=== PATIENT | female | born 1980 | race Caucasian/White ===

== ENCOUNTER 2018-01-11 20:50 | Emergency (ER) | payer BC ==
[2018-01-11 21:01] VITALS: BP 111/75
[2018-01-11 21:47] LABS: ABSOLUTE BASOPHILS # (AUTO) 0.1 10^3/uL (0.0-0.2); ABSOLUTE EOSINOPHILS # (AUTO) 0.4 10^3/uL (0.0-0.6); ABSOLUTE MONOCYTES (AUTO) 0.7 10^3/uL (0.1-1.4); ABSOLUTE NEUT (AUTO) 5.1 10^3/uL (1.7-8.2); BASOPHILS % (AUTO) 0.7 % (0-2); HEMOGLOBIN 14.4 g/dL (12.0-15.5); LYMPHOCYTES % (AUTO) 32.1 % (13-45); MEAN CORPUSCULAR HEMOGLOBIN 31.7 pg (27.0-33.4); MEAN CORPUSCULAR HGB CONC 34.2 g/dL (32.0-36.0); MEAN CORPUSCULAR VOLUME 93 fl (80-97); PLATELET COUNT 469 10^3/uL (150-450); RED BLOOD COUNT 4.54 10^6/uL (3.72-5.28); RED CELL DISTRIBUTION WIDTH 13.6 % (11.5-14.0); SEGMENTED NEUTROPHILS % (AUTO) 55.2 % (42-78); TOTAL CELLS COUNTED % (AUTO) 100 %; WHITE BLOOD COUNT 9.2 10^3/uL (4.0-10.5)
[2018-01-11 21:52] LABS: APPEARANCE,URINE SLIGHTLY-CLOUDY; BILIRUBIN,URINE NEGATIVE (NEGATIVE); COLOR,URINE YELLOW; GLUCOSE, URINE NEGATIVE (NEGATIVE); KETONES,URINE NEGATIVE (NEGATIVE); LEUKOCYTE ESTERASE,URINE LARGE (NEGATIVE); NITRITE,URINE NEGATIVE (NEGATIVE); PROTEIN,URINE NEGATIVE (NEGATIVE); URINE SPECIFIC GRAVITY 1.017; UROBILINOGEN,URINE NEGATIVE mg/dL (<2.0)
[2018-01-11 22:05] LABS: ALANINE AMINOTRANSFERASE 27 U/L (9-52); ALBUMIN 4.4 g/dL (3.5-5.0); ALKALINE PHOSPHATASE 89 U/L (38-126); ANION GAP 11 (5-19); ASPARTATE AMINO TRANSFERASE 27 U/L (14-36); BILIRUBIN,DIRECT 0.2 mg/dL (0.0-0.4); BILIRUBIN,TOTAL 0.4 mg/dL (0.2-1.3); BLOOD UREA NITROGEN 11 mg/dL (7-20); CALCIUM 9.6 mg/dL (8.4-10.2); CARBON DIOXIDE 29 mmol/L (22-30); CHLORIDE 104 mmol/L (98-107); GLUCOSE 61 mg/dL (75-110); POTASSIUM 4.4 mmol/L (3.6-5.0); SODIUM 143.7 mmol/L (137-145); TOTAL PROTEIN 7.9 g/dL (6.3-8.2)
== END 2018-01-11 23:00 | disposition left against medical advice (07) ==
LOC: ER 20:50
DX: Z53.21 Procedure and treatment not carried out due to patient leaving prior to being seen by health care provider (principal)
CPT/HCPCS: 36415; 80053; 81001; 84703; 85025

== ENCOUNTER 2018-02-22 20:04 | Emergency (ER) | payer BC ==
--- NOTE | 2018-02-22 20:44 | ER Document Report ---
HPI - HPI Pain Level: 4 Past Medical History Renal/ Medical History: Denies: Hx Peritoneal Dialysis Vertical Provider Document - INFECTION CONTROL TRAVEL OUTSIDE OF THE [place] IN LAST 30 DAYS: No Course - Vital Signs Vital signs: Temp Pulse Resp BP Pulse Ox 100.8 F H 105 H 18 120/77 100 02/22/18 20:16 02/22/18 20:16 02/22/18 20:16 02/22/18 20:16 02/22/18 20:16
[2018-02-22] MEDS ORDERED: ACETAMINOPHEN 325 MG TABLET PO ONE (21:06)
[2018-02-22] MEDS ORDERED: NORMAL SALINE 1000 ML 1,000 ML IV ONE (21:13)
--- NOTE | 2018-02-22 21:18 | ER Document Report ---
ED GI/ - General Mode of Arrival: Ambulatory Information source: Patient TRAVEL OUTSIDE OF THE [place] IN LAST 30 DAYS: No <AJAY SALAZAR - Last Filed: 02/23/18 03:16> <CORA LISA - Last Filed: 02/23/18 03:31> - General Chief Complaint: Urinary Problem Stated Complaint: PAINFUL URINATION Time Seen by Provider: 02/22/18 20:44 Notes: 37-year-old female nondiabetic complaining of dysuria frequency and urgency for several days. She has nausea chills and fever. It started with low back pain that was generalized. No vaginal discharge or odor. (AJAY SALAZAR) - Related Data Allergies/Adverse Reactions: No Known Allergies Allergy (Verified 01/11/18 21:29) Past Medical History - General Information source: Patient - Social History Smoking Status: Current Every Day Smoker Chew tobacco use (# tins/day): No Frequency of alcohol use: Occasional Drug Abuse: Marijuana, Other - ex IV drug user Lives with: Family Family History: Reviewed & Not Pertinent Patient has suicidal ideation: No Patient has homicidal ideation: No - Medical History Medical History: Negative Renal/ Medical History: Denies: Hx Peritoneal Dialysis Surgical Hx: Negative <AJAY SALAZAR - Last Filed: 02/23/18 03:16> Review of Systems - Review of Systems Constitutional: See HPI EENT: No symptoms reported Cardiovascular: No symptoms reported Respiratory: No symptoms reported Gastrointestinal: No symptoms reported Genitourinary: See HPI Female Genitourinary: No symptoms reported Musculoskeletal: No symptoms reported Skin: No symptoms reported Hematologic/Lymphatic: No symptoms reported Neurological/Psychological: No symptoms reported <AJAY SALAZAR - Last Filed: 02/23/18 03:16> Physical Exam - Vital signs Interpretation: Normal, Other - Mild fever and mild tachycardia - General General appearance: Appears well, Alert In distress: None - HEENT Head: Normocephalic, Atraumatic Eyes: Normal Pupils: PERRL Neck: Supple - Respiratory Respiratory status: No respiratory distress Chest status: Nontender Breath sounds: Normal Chest palpation: Normal - Cardiovascular Rhythm: Regular Heart sounds: Normal auscultation Murmur: No - Abdominal Inspection: Normal Distension: No distension Bowel sounds: Normal Tenderness: Nontender. No: Tender Organomegaly: No organomegaly - Back Back: Normal, Nontender. No: CVA tenderness - Extremities General upper extremity: Normal inspection, Nontender, Normal color, Normal ROM , Normal temperature General lower extremity: Normal inspection, Nontender, Normal color, Normal ROM , Normal temperature, Normal weight bearing. No: Anatoliy's sign - Neurological Neuro grossly intact: Yes Cognition: Normal Orientation: AAOx4 [place] Coma Scale Eye Opening: Spontaneous Tasha Coma Scale Verbal: Oriented Tasha Coma Scale Motor: Obeys Commands Tasha Coma Scale Total: 15 Speech: Normal Motor strength normal: LUE, RUE, LLE, RLE Sensory: Normal - Psychological Associated symptoms: Normal affect, Normal mood - Skin Skin Temperature: Warm Skin Moisture: Dry Skin Color: Normal Skin irregularity: negative: Rash <AJAY SALAZAR - Last Filed: 02/23/18 03:16> <CORA LISA - Last Filed: 02/23/18 03:31> - Vital signs Vitals: Temp Pulse Resp BP Pulse Ox 100.8 F H 105 H 18 120/77 100 02/22/18 20:16 02/22/18 20:16 02/22/18 20:16 02/22/18 20:16 02/22/18 20:16 Course - Laboratory Result Diagrams: 02/22/18 22:10 02/22/18 22:10 <AJAY SALAZAR - Last Filed: 02/23/18 03:16> - Laboratory Result Diagrams: 02/22/18 22:10 02/22/18 22:10 <CORA LISA - Last Filed: 02/23/18 03:31> - Re-evaluation Re-evalutation: 02/22/18 22:26 Urinalysis shows 2+ bacteria, greater than 182 WBCs, 4 RBCs. Rocephin 1 g ordered IV and 1 L of normal saline is infusing. Negative test. White count is 13.6 without a shift. Chemistry is normal except for total bilirubin of 2.2. Urine culture is pending. Getting US to look for hydronephrosis, possibility of obstruction. 02/23/18 00:40 Ultrasound shows complex mass in the left kidney with mural component demonstrating vascularity, 2 cm hypoechoic right renal read lesion with no significant vascularity, mild right hydronephrosis and moderate right proximal hydroureter. Spoke with the radiologist who read this and he recommends a multiphase with and without contrast of the kidneys. I spoke with the ruling technician so he understands what the order needs to be. Consult Dr. Lisa who agrees that the patient needs to be scanned [facility]. I explained all this to the patient. 02/23/18 02:34 CT scan shows a simple cyst in the left kidney, 4.4 cm area of suspected pyelonephritis in the right kidney and a 1 cm obstructing distal left ureter stone. I placed a call to urology and [facility] since the patient does not have a preference to which urologist I spoke with and she is aware that there may be a possible transfer to [facility]. 02/23/18 02:40 Patient's vitals are stable and she is been eating and drinking since she has been here. Dr. Lisa aware of the transfer that has been initiated. 02/23/18 02:50 Dr. Brown urologist at [facility] will accept the patient is in the ER to ER transfer. 02/23/18 03:06 Report given to Samantha PEREZ at the bedside. 02/23/18 03:16 dr lisa at the bedside. (AJAY SALAZAR) 02/23/18 03:31 Transport team is arrived. I reevaluated the patient. Patient is doing well. She is little bit of pain. I canceled the order for Toradol. We will give her morphine instead. Of ordered Tylenol for fever. Patient's blood pressure is normal. She looks well. She is in no distress. She is stable for transport. ( CORA LISA) - Vital Signs Vital signs: Temp Pulse Resp BP Pulse Ox 100.6 F H 104 H 17 115/69 98 02/23/18 03:24 02/23/18 03:24 02/23/18 03:24 02/23/18 03:24 02/23/18 03:24 - Laboratory Laboratory results interpreted by me: 02/22/18 02/22/18 02/22/18 21:10 22:10 22:10 WBC 13.6 H Absolute Neutrophils 9.8 H Absolute Monocytes 1.5 H Est GFR (Non-Af Amer) 57 L Total Bilirubin 2.2 H Direct Bilirubin 0.5 H Urine Protein 100 H Urine Blood MODERATE H Urine Urobilinogen 4.0 H Ur Leukocyte Esterase LARGE H Discharge <AJAY SALAZAR - Last Filed: 02/23/18 03:16> <CORA LISA - Last Filed: 02/23/18 03:31> - Discharge Clinical Impression: Pyelonephritis, Right ureteral obstructing 1 cm stone Condition: Stable Disposition: [facility]
[2018-02-22 21:29] LABS: APPEARANCE,URINE TURBID; BILIRUBIN,URINE NEGATIVE (NEGATIVE); COLOR,URINE YELLOW; GLUCOSE, URINE NEGATIVE (NEGATIVE); KETONES,URINE NEGATIVE (NEGATIVE); LEUKOCYTE ESTERASE,URINE LARGE (NEGATIVE); NITRITE,URINE NEGATIVE (NEGATIVE); PROTEIN,URINE 100 mg/dL (NEGATIVE); URINE SPECIFIC GRAVITY 1.017
[2018-02-22 22:21] LABS: ABSOLUTE LYMPHOCYTES (AUTO) 2.2 10^3/uL (0.5-4.7); ABSOLUTE MONOCYTES (AUTO) 1.5 10^3/uL (0.1-1.4); ABSOLUTE NEUT (AUTO) 9.8 10^3/uL (1.7-8.2); BASOPHILS % (AUTO) 0.3 % (0-2); EOSINOPHILS % (AUTO) 0.2 % (0-6); HEMATOCRIT 43.8 % (36.0-47.0); LYMPHOCYTES % (AUTO) 16.1 % (13-45); MEAN CORPUSCULAR HGB CONC 34.2 g/dL (32.0-36.0); MEAN CORPUSCULAR VOLUME 93 fl (80-97); MONOCYTES % (AUTO) 11.3 % (3-13); PLATELET COUNT 347 10^3/uL (150-450); RED BLOOD COUNT 4.69 10^6/uL (3.72-5.28); RED CELL DISTRIBUTION WIDTH 13.5 % (11.5-14.0); SEGMENTED NEUTROPHILS % (AUTO) 72.1 % (42-78); TOTAL CELLS COUNTED % (AUTO) 100 %; WHITE BLOOD COUNT 13.6 10^3/uL (4.0-10.5)
[2018-02-22] MEDS ORDERED: CEFTRIAXONE 1 GM/D5W RTU 1 GM/50 ML RTUPB IV ONE (22:21)
[2018-02-22 22:48] LABS: ALANINE AMINOTRANSFERASE 20 U/L (9-52); ALBUMIN 4.5 g/dL (3.5-5.0); ALKALINE PHOSPHATASE 89 U/L (38-126); ANION GAP 18 (5-19); ASPARTATE AMINO TRANSFERASE 26 U/L (14-36); BILIRUBIN,DIRECT 0.5 mg/dL (0.0-0.4); BILIRUBIN,TOTAL 2.2 mg/dL (0.2-1.3); BLOOD UREA NITROGEN 15 mg/dL (7-20); CALCIUM 9.6 mg/dL (8.4-10.2); CARBON DIOXIDE 23 mmol/L (22-30); CHLORIDE 100 mmol/L (98-107); GLUCOSE 85 mg/dL (75-110); POTASSIUM 3.6 mmol/L (3.6-5.0); SODIUM 141.1 mmol/L (137-145); TOTAL PROTEIN 8.1 g/dL (6.3-8.2)
[2018-02-22] MEDS ORDERED: CEFTRIAXONE INJ 1000 MG VIAL IV ONE (23:09)
--- NOTE | 2018-02-23 00:14 | RADIOLOGY REPORT (SQ) ---
EXAM DESCRIPTION: US RETROPERITONEUM COMPLETED DATE/TME: 02/22/2018 21:51 CLINICAL HISTORY: 37 years, Female, pyelonephritis, look for hydro COMPARISON: None. LIMITATIONS: None. FINDINGS: Indeterminate 3.5 x 3.1 x 3.3 cm complex cystic mass of the left kidney with mural component demonstrating vascularity. 2.0 cm hypoechoic right renal lesion with no significant vascularity probably due to a hemorrhagic cyst. Mild right hydronephrosis and moderate right proximal hydroureter with ureteral diameter measuring 1.1 cm. Urinary bladder appears unremarkable. Ureteral jet flow is not demonstrated. IMPRESSION: 1. Indeterminate renal lesions measure 3.5 cm on the left and 2.0 cm on the right. Recommend further evaluation with multiphase contrast CT or MRI of the kidneys. 2. Egni-ew-zafouohn right hydronephrosis-hydroureter.
--- NOTE | 2018-02-23 02:23 | RADIOLOGY REPORT (SQ) ---
EXAM DESCRIPTION: CT ABDOMEN PELVIS WITHOUT THEN WITH IV CONTRAST COMPLETED DATE/TME: 02/23/2018 00:36 CLINICAL HISTORY: 37 years Female, cystic mass left kidney hydro right kidney. LTD then RENAL 3 phase. Comparison: None. Technique: Multiphase IV contrast. Coronal and sagittal reformat. This exam was performed according to our departmental dose-optimization program, which includes automated exposure control, adjustment of the mA and/or kV according to patient size and/or use of iterative reconstruction technique. [facility]: Dose Right [facility]: CareDose [facility]: Dose Right [facility]: Teradose 4D [facility]: Pinger LIMITATIONS: Ultrasound, same day. Findings: 1.0 x 0.8 x 0.4 cm, 831-HU, right distal ureteral stone at the level of the L5-S1 disc, moderate right hydronephrosis-hydroureter, moderate right periureteral fat stranding, mild right perinephric fat stranding, punctate right nephrolithiasis. Patchy low-attenuation heterogeneous enhancement of the right kidney includes a 4.4 cm poorly defined lesion at the interpolar region and 3.3 cm component at the upper pole probably due to pyelonephritis. 3.0 cm simple cyst of the left kidney. No significant free fluid in the abdomen or pelvis. Normal appendix. Basilar atelectasis/scar. Inferior thorax, liver, gallbladder, pancreas, spleen, adrenals, gastrointestinal tract, pelvic organs, lymphatics, vasculature, and musculoskeleton appear otherwise unremarkable. IMPRESSION: A 1.0 cm right distal ureteral stone with moderate grade obstruction. Right pyelonephritis pattern. Differential diagnosis includes neoplasm. Contrast CT surveillance recommended in three months following clinically warranted therapy.
[2018-02-23] MEDS ORDERED: NORMAL SALINE 1000 ML 1,000 ML IV ONE (03:15)
[2018-02-23] MEDS ORDERED: KETOROLAC TROMETHAMINE INJ/PF 30 MG/1 ML SDV IV ONE (03:21)
[2018-02-23 03:25] VITALS: BP 115/69
[2018-02-23] MEDS ORDERED: MORPHINE SULFATE 10 MG/ML INJ IV ONE (03:30)
[2018-02-23] MEDS ORDERED: ACETAMINOPHEN 325 MG TABLET PO ONE (03:31)
== END 2018-02-23 03:45 | disposition short-term general hospital (02) ==
LOC: ER 20:04
DX: N20.1 Calculus of ureter (principal); R30.0 Dysuria; R35.0 Frequency of micturition; R39.15 Urgency of urination; F17.200 Nicotine dependence, unspecified, uncomplicated
CPT/HCPCS: 99285; 96361; 96375; 96365; 36415; 87086; 85025; 81025; 87088; 80053; 81001; 87186; 76770; 74178; J1885; J2270; J0696; J7030 ×2